=== PATIENT | female | born 1980 ===

== ENCOUNTER 2020-05-31 17:07 | Emergency (ER) | payer SELFPAY ==
[2020-05-31] MEDS ORDERED: KETOROLAC 30 MG/1 ML INJ IM ONE (21:21)
[2020-05-31] MEDS ORDERED: dexAMETHasone 20 MG/5 ML VIAL IM ONE (21:21)
[2020-05-31] MEDS ORDERED: HYDROcodone/ACETAMINOPHEN 5-325 MG TAB PO ONE (21:22)
[2020-05-31] MEDS ORDERED: ONDANSETRON 4 MG ODT TAB PO ONE (21:22)
--- NOTE | 2020-05-31 21:35 | Emergency Department Report ---
ED General Adult HPI - General Chief complaint: Headache Stated complaint: LT SIDE FACIAL AND ARM PAIN Source: patient Mode of arrival: Ambulatory Limitations: Language Barrier - History of Present Illness Initial comments: Patient is a 39-year-old female with no past medical history except for chronic low back pain and neck pain who presents to the ED with worsening right lateral neck pain that radiates to the right arm and right temporal scalp for the last 2 weeks worse in the last 2 days. Patient also complains of right maxillary and frontal sinus pressure and pain for the last 2 weeks. Patient states that the pain in the right arm and right lateral neck has worsened despite taking [id number]-asvwwni pain medications. Patient denies fall, traumatic injury, dizziness, syncope, chest pain, shortness of breath, abdominal pain, nausea and vomiting, diaphoresis, heavy lifting, change in vision, nasal and sinus congestion or sore throat, numbness and tingling or weakness of upper and lower extremities bilaterally. MD Complaint: right maxillary, right frontal and temporal pain; right lateral neck pain -: Gradual, year(s) (1) Location: head (Right maxillary, right frontal and right temporal scalp pain), face, neck (right lateral scalp), back (lower), upper extremity (right lateral shoulder pain), lower extremity (right hip and leg pain) Radiation: back (lower), extremity (right arm and right leg) Severity scale (0 -10): 8 Quality: aching, sharp Consistency: constant Improves with: none Worsens with: movement Associated Symptoms: denies other symptoms. denies: confusion, chest pain, cough, diaphoresis, fever/chills, headaches, loss of appetite, malaise, nausea/vomiting, rash, seizure, shortness of breath, syncope, weakness Treatments Prior to Arrival: none - Related Data Previous Rx's Medication Instructions Recorded Last Taken Type Amoxicillin/Potassium Clav 1 each PO Q12H #20 tablet 05/31/20 Unknown Rx [Augmentin 875-125 Tablet] Naproxen 500 mg PO Q12H PRN #30 tablet 05/31/20 Unknown Rx methOCARBAMOL [Robaxin TAB] 750 mg PO Q12H PRN #30 tab 05/31/20 Unknown Rx predniSONE [Deltasone] 60 mg PO QDAY #15 tab 05/31/20 Unknown Rx Allergies Allergy/AdvReac Type Severity Reaction Status Date / Time No Known Allergies Allergy Verified 05/31/20 17:19 ED Review of Systems ROS: Stated complaint: LT SIDE FACIAL AND ARM PAIN Other details as noted in HPI Constitutional: denies: chills, fever Eyes: denies: eye pain, eye discharge, vision change ENT: other (right maxillary and frontal scalp pain; right temporal scalp pain). denies: ear pain, throat pain Respiratory: denies: cough, shortness of breath, wheezing Cardiovascular: denies: chest pain, palpitations Endocrine: no symptoms reported Gastrointestinal: denies: abdominal pain, nausea, diarrhea Genitourinary: denies: urgency, dysuria, discharge Musculoskeletal: denies: back pain, joint swelling, arthralgia Skin: denies: rash, lesions Neurological: denies: headache, weakness, paresthesias Psychiatric: denies: anxiety, depression Hematological/Lymphatic: denies: easy bleeding, easy bruising ED Past Medical Hx - Social History Smoking Status: Never Smoker Substance Use Type: None - Medications Home Medications: Home Medications Medication Instructions Recorded Confirmed Last Taken Type Amoxicillin/Potassium Clav 1 each PO Q12H #20 tablet 05/31/20 Unknown Rx [Augmentin 875-125 Tablet] Naproxen 500 mg PO Q12H PRN #30 tablet 05/31/20 Unknown Rx methOCARBAMOL [Robaxin TAB] 750 mg PO Q12H PRN #30 tab 05/31/20 Unknown Rx predniSONE [Deltasone] 60 mg PO QDAY #15 tab 05/31/20 Unknown Rx ED Physical Exam - General Limitations: Language Barrier General appearance: alert, in no apparent distress - Head Head exam: Present: atraumatic, normocephalic, normal inspection - Eye Eye exam: Present: normal appearance, PERRL, EOMI Pupils: Present: normal accommodation - ENT ENT exam: Present: normal orophraynx, mucous membranes moist, TM's normal bilaterally, normal external ear exam, other (Palpable right frontal and maxillary tenderness) - Neck Neck exam: Present: normal inspection, tenderness (Palpable right lateral neck and shoulder tenderness; right thigh and leg tenderness), full ROM - Respiratory Respiratory exam: Present: normal lung sounds bilaterally. Absent: respiratory distress, wheezes, rales, rhonchi, chest wall tenderness, accessory muscle use, prolonged expiratory - Cardiovascular Cardiovascular Exam: Present: regular rate, normal rhythm, normal heart sounds. Absent: systolic murmur, diastolic murmur, rubs, gallop - GI/Abdominal GI/Abdominal exam: Present: soft, normal bowel sounds. Absent: tenderness, guarding, rebound, hyperactive bowel sounds, hypoactive bowel sounds, organomegaly, mass - Extremities Exam Extremities exam: Present: normal inspection, full ROM, tenderness (Palpable right lateral shoulder and neck tenderness; right thigh tenderness), normal capillary refill. Absent: pedal edema, joint swelling, calf tenderness - Back Exam Back exam: Present: normal inspection, full ROM, tenderness (Palpable lumbosacral paraspinal musculoskeletal tenderness), muscle spasm, paraspinal tenderness - Neurological Exam Neurological exam: Present: alert, oriented X3, CN II-XII intact, normal gait, reflexes normal - Psychiatric Psychiatric exam: Present: normal affect, normal mood - Skin Skin exam: Present: warm, dry, intact, normal color. Absent: rash ED Course Vital Signs 05/31/20 05/31/20 05/31/20 17:14 21:35 21:37 Temperature 98.1 F Pulse Rate 90 Respiratory 20 16 16 Rate Blood Pressure 121/64 O2 Sat by Pulse 100 Oximetry ED Medical Decision Making - Radiology Data Radiology results: report reviewed, image reviewed - Medical Decision Making This is a 39-year-old female with no past medical history except for chronic low back pain and neck pain who presents to the ED with worsening right lateral neck pain that radiates to the right arm and right temporal scalp for the last 2 weeks worse in the last 2 days. Patient also complains of right maxillary and frontal sinus pressure and pain for the last 2 weeks. Patient states that the pain in the right arm and right lateral neck has worsened despite taking [id number] pain medications. In the ED, patient is alert and oriented x3 and is not in any distress. Patient was treated for pain in the ED and based on the history and physical exam findings, the patient symptoms are likely due to chronic cervical radiculopathy, chronic lumbar radiculopathy and muscle strain as well as chronic sinusitis. Patient was therefore discharged home on medications and advised to follow-up with her primary care physician in 5 to 7 days for reevaluation. Patient is advised return to the ED immediately if symptoms get worse. - Differential Diagnosis Cervical radiculopathy; lumbar radiculopathy; Muscle strain; sinusitis Critical care attestation.: If time is entered above; I have spent that time in minutes in the direct care of this critically ill patient, excluding procedure time. ED Disposition Clinical Impression: Right cervical radiculopathy, Lumbar radicular pain, Chronic frontal sinusitis Strain of sternocleidomastoid muscle Qualifiers: Encounter type: initial encounter Qualified Code(s): S16.1XXA - Strain of muscle, fascia and tendon at neck level, initial encounter Disposition: TO HOME OR SELFCARE Is pt being admited?: No Does the pt Need Aspirin: No Condition: Stable Instructions: Sinusitis, Adult, [id number], Cervical Radiculopathy, [id number], Cervical Strain and Sprain Rehab-SportsMed, Musculoskeletal Pain Additional Instructions: Keisha sntomas se deben a la distensin muscular de los msculos del muslo jesus y a la tendinitis de la rodilla izquierda, que es anika inflamacin de los tendones de la rodilla izquierda. [place] la medicacin con comida, elías muchos lquidos y edvin un seguimiento con valenzuela mdico de atencin primaria en 5 a 7 puckett para anika reevaluacin. Regrese al servicio de urgencias de inmediato si los sntomas empeoran. Prescriptions: Amoxicillin/Potassium Clav [Augmentin 875-125 Tablet] 1 each PO Q12H #20 tablet predniSONE [Deltasone] 60 mg PO QDAY #15 tab Naproxen 500 mg PO Q12H PRN #30 tablet PRN Reason: Pain , Severe (7-10) methOCARBAMOL [Robaxin TAB] 750 mg PO Q12H PRN #30 tab PRN Reason: Muscle Spasm Referrals: [facility] [place] [Outside] - 3-5 Days [facility] [Provider Group] - 3-5 Days Time of Disposition: 21:37 Print Language: FRENCH
[2020-05-31 22:09] VITALS: BP 110/75
== END 2020-05-31 22:26 | disposition home or self-care (01) ==
LOC: ED 17:07
DX: S16.1XXA Strain of muscle, fascia and tendon at neck level, initial encounter (principal); M54.16 Radiculopathy, lumbar region; M54.12 Radiculopathy, cervical region; J32.1 Chronic frontal sinusitis; Z79.899 Other long term (current) drug therapy; X58.XXXA Exposure to other specified factors, initial encounter; Y93.89 Activity, other specified; Y92.89 Other specified places as the place of occurrence of the external cause; Y99.8 Other external cause status
CPT/HCPCS: 96372; 99282; J1100; J1885; Q0162

== ENCOUNTER 2020-06-02 11:59 | Emergency (ER) | payer SELFPAY ==
[2020-06-02 12:51] VITALS: BP 114/78
--- NOTE | 2020-06-02 12:55 | Emergency Department Report ---
ED Headache HPI - General Chief Complaint: Headache Stated Complaint: HEADACHE Time Seen by Provider: 06/02/20 12:54 Source: patient, aerial photograph interpreter Exam Limitations: no limitations - History of Present Illness Initial Comments: [place] interpretation by patient's friend with the patient's permission Patient is a 39-year-old female presents emergency room complaints of right post erior occipital headache that has been ongoing for 4 months. Patient states that she went to a neurologist and they advised her she was likely suffering from migraines. She reports that the neurologist did not start her on medication. Patient was evaluated in the emergency department 2 days ago and was given prescriptions for sinusitis. She has no fever, no nasal congestion, no postnasal drip. She states that she also gets pain around the right eye. She states that she also feels tension to her right trapezius. She states that the headaches cause her to have nausea and vomiting. She denies any neck stiffness, thunderclap headache, numbness, weakness, vision changes, trauma, speech disturbance, gait disturbance. No past medical history. No allergies medications. Allergies/Adverse Reactions: Allergies No Known Allergies Allergy (Verified 05/31/20 17:19) Home Medications: Ambulatory Orders Amoxicillin/Potassium Clav [Augmentin 875-125 Tablet] 1 each PO Q12H #20 tablet 05/31/20 Naproxen 500 mg PO Q12H PRN #30 tablet 05/31/20 methOCARBAMOL [Robaxin TAB] 750 mg PO Q12H PRN #30 tab 05/31/20 predniSONE [Deltasone] 60 mg PO QDAY #15 tab 05/31/20 Ondansetron [Zofran Odt] 4 mg PO Q8HR PRN #10 tab.rapdis 06/02/20 SUMAtriptan SUCCINATE [Imitrex] 25 mg PO Q8HR PRN #12 tablet 06/02/20 ED Review of Systems ROS: Stated complaint: HEADACHE Other details as noted in HPI Comment: All other systems reviewed and negative ED Past Medical Hx - Past Medical History Previous Medical History?: No - Surgical History Past Surgical History?: No - Social History Smoking Status: Never Smoker Substance Use Type: None - Medications Home Medications: Home Medications Medication Instructions Recorded Confirmed Last Taken Type Amoxicillin/Potassium Clav 1 each PO Q12H #20 tablet 05/31/20 Unknown Rx [Augmentin 875-125 Tablet] Naproxen 500 mg PO Q12H PRN #30 tablet 05/31/20 Unknown Rx methOCARBAMOL [Robaxin TAB] 750 mg PO Q12H PRN #30 tab 05/31/20 Unknown Rx predniSONE [Deltasone] 60 mg PO QDAY #15 tab 05/31/20 Unknown Rx Ondansetron [Zofran Odt] 4 mg PO Q8HR PRN #10 tab.rapdis 06/02/20 Unknown Rx SUMAtriptan SUCCINATE [Imitrex] 25 mg PO Q8HR PRN #12 tablet 06/02/20 Unknown Rx ED Physical Exam - General Limitations: No Limitations General appearance: alert, in no apparent distress - Head Head exam: Present: atraumatic, normocephalic - Eye Eye exam: Present: normal appearance, PERRL, EOMI. Absent: scleral icterus, conjunctival injection, nystagmus, periorbital swelling, periorbital tenderness Pupils: Present: normal accommodation - ENT ENT exam: Present: normal orophraynx, mucous membranes moist, other (no sinus ttp, normal nasal turbinates, no erythema or purulent drainage) - Neck Neck exam: Present: normal inspection, full ROM. Absent: tenderness, meningismus - Respiratory Respiratory exam: Present: normal lung sounds bilaterally. Absent: respiratory distress, wheezes, rales, rhonchi, stridor, chest wall tenderness, accessory muscle use, decreased breath sounds, prolonged expiratory - Cardiovascular Cardiovascular Exam: Present: regular rate, normal rhythm, normal heart sounds. Absent: systolic murmur, diastolic murmur, rubs, gallop - Extremities Exam Extremities exam: Present: other (mild right sided trapezius ttp, no midline C- spine, T-spine or L-spine ttp, no step offs, no deformities ) - Neurological Exam Neurological exam: Present: alert, oriented X3, CN II-XII intact, normal gait. Absent: motor sensory deficit - Expanded Neurological Exam Expanded Patient oriented to: Present: person, place, time Speech: Present: fluid speech Cranial nerves: EOM's Intact: Normal, Gag Reflex: Normal, Facial Sensation: Normal Cerebellar function: Finger to Nose: Normal, Heel to Tadeo: Normal, Romberg: Normal Sensory exam: Upper Extremity Light Touch: Normal, Upper Extremity Pin Prick: Normal, Upper Extremity Temperature: Normal, UE 2 Point Discrimination: Normal, Lower Extremity Light Touch: Normal, Lower Extremity Pin Prick: Normal, Lower Extremity Temperature: Normal, LE 2 Point Discrimination: Normal Motor strength exam: RUE: 5, LUE: 5, RLE: 5, LLE: 5 Best Eye Response ([place]): (4) open spontaneously Best Motor Response ([place]): (6) obeys commands Best Verbal Response ([place]): (5) oriented [place] Total: 15 - Psychiatric Psychiatric exam: Present: normal affect, normal mood - Skin Skin exam: Present: warm, dry, intact ED Course Vital Signs 06/02/20 12:50 Temperature 97.7 F Pulse Rate 79 Respiratory 20 Rate Blood Pressure 114/78 O2 Sat by Pulse 99 Oximetry ED Medical Decision Making - Medical Decision Making Citizen [place] interpretation by patient's friend with the patient's permission Patient is a 39-year-old female presents emergency room complaints of right p osterior occipital headache that has been ongoing for 4 months. Patient states that she went to a neurologist and they advised her she was likely suffering from migraines. She reports that the neurologist did not start her on medication. Patient was evaluated in the emergency department 2 days ago and was given prescriptions for sinusitis. She has no fever, no nasal congestion, no postnasal drip. She states that she also gets pain around the right eye. She states that she also feels tension to her right trapezius. She states that the headaches cause her to have nausea and vomiting. She denies any neck stiffness, thunderclap headache, numbness, weakness, vision changes, trauma, speech disturbance, gait disturbance. No past medical history. No allergies medications. Vitals are normal. Patient has no focal neuro deficits on exam. She has had no trauma. She has no meningeal signs. She denies any thunderclap headache. This has been ongoing for 4 months. Symptoms likely related to cluster versus tension headaches. Patient given prescription for Imitrex and Zofran. Discussed the importance of neurology follow-up. Discussed return precautions. Advised patient Please take medication as prescribed as needed. Please follow-up with a neurologist. Return to emergency room for any new or worsening symptoms. Critical care attestation.: If time is entered above; I have spent that time in minutes in the direct care of this critically ill patient, excluding procedure time. ED Disposition Clinical Impression: Headache Qualifiers: Headache type: unspecified Headache chronicity pattern: chronic headache Intractability: not intractable Qualified Code(s): R51.9 - Headache, unspecified Disposition: DC- TO HOME OR SELFCARE Is pt being admited?: No Does the pt Need Aspirin: No Condition: Stable Instructions: Recurrent Migraine Headache, [id number] Additional Instructions: Please take medication as prescribed as needed. Please follow-up with a neurologist. Return to emergency room for any new or worsening symptoms. [place] la medicacin prescrita segn sea necesario. Panfilo un seguimiento con un neurlogo. Regrese a la jodee de emergencias por cualquier sntoma nuevo o que empeore. Prescriptions: SUMAtriptan SUCCINATE [Imitrex] 25 mg PO Q8HR PRN #12 tablet PRN Reason: headache Ondansetron [Zofran Odt] 4 mg PO Q8HR PRN #10 tab.rapdis PRN Reason: nausea/vomiting Referrals: [facility] [Provider Group] - 2-3 Days MARLINE SESAY MD [Referring] - 2-3 Days Time of Disposition: 12:59 Print Language: GERMAN
== END 2020-06-02 13:38 | disposition home or self-care (01) ==
LOC: ED 11:59
DX: R51.9 Headache, unspecified (principal); Z79.899 Other long term (current) drug therapy
CPT/HCPCS: 99282